=== PATIENT | female | born 1955 | race African-American/Black ===

== ENCOUNTER 2016-10-26 17:18 | Emergency (ER) | payer MEDICARE, MEDICAID ==
[~2016-10-26] VITALS: Ht 167.6 cm; Wt 59.0 kg
[~2016-10-26 17:18] MED LIST: ALBU6.7H INH; LISI-360 PO; OMEP20TA PO
[2016-10-26 17:20] VITALS: BP 154/84; PULSE 88; RESP 20; TEMP 99.4; O2SAT 98
--- NOTE | 2016-10-26 17:57 | PD ---
Physical Exam Time Seen by Provider: 17:53 Narrative 61 year old female presents to ED for evaluation of bilateral feet edema beginning 3 days ago. This has never happened "like this" in the past. Left is worse than right. Denies any pain. No recent travel. No history of blood clot. No CP or tightness. No SOB. Has been having hot flashes at night; otherwise she feels "great." Pt states she has no significant medical history. Data Data Last Documented VS Vital Signs Date Time Temp Pulse Resp B/P Pulse Ox O2 Delivery O2 Flow Rate FiO2 10/26/16 17:20 99.4 88 20 154/84 98 Room Air [facility] Medical Record Reviewed: Yes Supervised Visit with LATOYA: No Narrative Course 61 year old female presents to ED for evaluation of Bilateral foot edema. No other symptoms. Appears without distress. VSS Condition: Stable Sol Marinelli Oct 26, 2016 17:57
[2016-10-26] MEDS ORDERED: SODIUM CHLORIDE 0.9% FLUSH 10 ML FLUSH IVF PRN (19:15)
[2016-10-26 19:32] VITALS: O2SAT 100
[2016-10-26 19:55] VITALS: BP 142/77
[2016-10-26 19:56] LABS: BACTERIA, URINE RARE /hpf; BLOOD, URINE NEG (NEG); COMMENT (UR) CULT NOT INDICATED; CULTURE IF INDICATED CULT NOT INDICATED; GLUCOSE,URINE NEG (NEG); KETONE, URINE TRACE mg/dL (NEG); MUCUS URINE FEW /lpf (OCC); NITRITE,URINE NEG (NEG); PH, URINE 6.5 (5.0-8.5); SQUAMOUS EPITHELIAL CELL URINE 1 /hpf (0-5); URINE COLOR YELLOW (YELLW/STRAW)
[2016-10-26 20:00] LABS: AUTOMATED NEUTROPHIL # 2.9 TH/MM3 (1.8-7.7); BASOPHIL # 0.1 TH/MM3 (0-0.2); BASOPHIL % 1.1 % (0.0-2.0); EOSINOPHIL # 0.1 TH/MM3 (0-0.4); EOSINOPHIL % 1.3 % (0.0-4.0); HEMATOCRIT 37.2 % (35.0-46.0); LYMPH % 26.9 % (9.0-44.0); LYMPHOCYTE # 1.4 TH/MM3 (1.0-4.8); MEAN CELL VOLUME 92.1 FL (80.0-100.0); MEAN CORPUSCULAR HEMOGLOBIN 31.8 PG (27.0-34.0); MEAN CORPUSCULAR HGB CONC 34.5 % (32.0-36.0); NEUT % 54.7 % (16.0-70.0); PLATELET COUNT 85 TH/MM3 (150-450); RED BLOOD COUNT 4.04 MIL/MM3 (4.00-5.30); RED CELL DISTRIBUTION WIDTH 12.9 % (11.6-17.2); WHITE BLOOD COUNT 5.2 TH/MM3 (4.0-11.0)
[2016-10-26 20:04] LABS: HEMO FLAGS AUTO DIFF
[2016-10-26 20:27] LABS: ALKALINE PHOSPHATASE 250 U/L (45-117); ALT (GPT) 37 U/L (10-53); ANION GAP 6 MEQ/L (5-15); AST (GOT) 65 U/L (15-37); BICARBONATE 29.9 MEQ/L (21.0-32.0); BLOOD UREA NITROGEN 6 MG/DL (7-18); CHLORIDE 101 MEQ/L (98-107); GLOMERULAR FILTRATION RATE 126 ML/MIN (>89); POTASSIUM 4.1 MEQ/L (3.5-5.1); SODIUM (NA) 137 MEQ/L (136-145); TOTAL BILIRUBIN ADULT 1.1 MG/DL (0.2-1.0)
[2016-10-26 20:30] LABS: PLATELET ESTIMATE SMEAR LOW (NORMAL); PLATELET MORPHOLOGY ENLARGED (NORMAL); SCAN/DIFF AUTO DIFF CONFIRMED
--- NOTE | 2016-10-26 21:32 | PD ---
HPI Chief Complaint: Edema Time Seen by Provider: 18:53 Travel History International Travel<30 days: No Contact w/Intl Traveler<30days: No Traveled to known affect area: No History of Present Illness HPI Patient is 61 years old. She arrives due to bilateral lower extremity edema. She states it has been present for 3-4 days. The daughter is reported has been present for 2 months. Similar episodes have occurred. She's had no shortness of breath fever or chest pain. She reports decreased appetite. Urination has been normal at home. She has no history of DVT. PFSH Past Medical History Heart Rhythm Problems: No Cancer: No Cardiovascular Problems: No Chest Pain: No Cerebrovascular Accident: No Diminished Hearing: No Endocrine: No GERD: Yes Hypertension: Yes Musculoskeletal: Yes (CHRONIC BACK PAIN) Neurologic: No Psychiatric: No Reproductive: No Migraines: No Pancreatitis: Yes Seizures: No Sickle Cell Disease: No Sleep Apnea: No Menopausal: Yes Past Surgical History Cholecystectomy: Yes Endocrine Surgery: Yes (PANCREATIC SURGERY) Other Surgery: Yes (PANCREAS) Social History Alcohol Use: Yes Tobacco Use: Yes Substance Use: No Allergies-Medications (Allergen,Severity, Reaction): Coded Allergies: No Known Allergies (Verified , 10/26/16) Reported Meds & Prescriptions Reported Meds & Active Scripts Active No Active Prescriptions or Reported Medications Review of Systems Except as stated in HPI: all other systems reviewed are Neg General / Constitutional: No: Fever Respiratory: No: Shortness of Breath Musculoskeletal: Positive: Edema Physical Exam Narrative GENERAL: 61-year-old female pleasant SKIN: Focused skin assessment warm/dry. HEAD: Atraumatic. Normocephalic. EYES: Pupils equal and round. No scleral icterus. No injection or drainage. ENT: No nasal bleeding or discharge. Mucous membranes pink and moist. NECK: Trachea midline. No JVD. CARDIOVASCULAR: Regular rate and rhythm. No murmur appreciated. RESPIRATORY: No accessory muscle use. Clear to auscultation. Breath sounds equal bilaterally. GASTROINTESTINAL: Abdomen soft, non-tender, nondistended. Hepatic and splenic margins not palpable. MUSCULOSKELETAL: No obvious deformities. No clubbing. No cyanosis. Minimal bilateral nonpitting edema involving the dorsum of the feet and bilateral ankles. NEUROLOGICAL: Awake and alert. No obvious cranial nerve deficits. Motor grossly within normal limits. Normal speech. PSYCHIATRIC: Appropriate mood and affect; insight and judgment normal. Data Data Last Documented VS Vital Signs Date Time Temp Pulse Resp B/P Pulse Ox O2 Delivery O2 Flow Rate FiO2 10/26/16 21:52 90 16 152/74 100 10/26/16 19:32 Room Air 10/26/16 17:20 99.4 Vital signs reviewed Orders Complete Blood Count With Diff (10/26/16 19:14) Comprehensive Metabolic Panel (10/26/16 19:14) Urinalysis - C+S If Indicated (10/26/16 19:14) Iv Access Insert/Monitor (10/26/16 19:14) Ecg Monitoring (10/26/16 19:14) Oximetry (10/26/16 19:14) Oxygen Administration (10/26/16 19:14) Sodium Chloride 0.9% Flush (Ns Flush) (10/26/16 19:15) Us Leg Venous Doppler Bilat (10/26/16 ) Labs Laboratory Tests Test 10/26/16 10/26/16 19:00 19:25 Urine Color YELLOW Urine Turbidity HAZY Urine pH 6.5 Urine Specific [place] 1.012 Urine Protein NEG mg/dL Urine Glucose (UA) NEG mg/dL Urine Ketones TRACE mg/dL Urine Occult Blood NEG Urine Nitrite NEG Urine Bilirubin NEG Urine Urobilinogen 4.0 MG/DL Urine Leukocyte Esterase TRACE Urine RBC LESS THAN 1 /hpf Urine WBC 5 /hpf Urine Squamous Epithelial 1 /hpf Cells Urine Bacteria RARE /hpf Urine Mucus FEW /lpf Microscopic Urinalysis Comment CULT NOT INDICATED White Blood Count 5.2 TH/MM3 Red Blood Count 4.04 MIL/MM3 Hemoglobin 12.8 GM/DL Hematocrit 37.2 % Mean Corpuscular Volume 92.1 FL Mean Corpuscular Hemoglobin 31.8 PG Mean Corpuscular Hemoglobin 34.5 % Concent Red Cell Distribution Width 12.9 % Platelet Count 85 TH/MM3 Mean Platelet Volume 11.5 FL Neutrophils (%) (Auto) 54.7 % Lymphocytes (%) (Auto) 26.9 % Monocytes (%) (Auto) 16.0 % Eosinophils (%) (Auto) 1.3 % Basophils (%) (Auto) 1.1 % Neutrophils # (Auto) 2.9 TH/MM3 Lymphocytes # (Auto) 1.4 TH/MM3 Monocytes # (Auto) 0.8 TH/MM3 Eosinophils # (Auto) 0.1 TH/MM3 Basophils # (Auto) 0.1 TH/MM3 CBC Comment AUTO DIFF Differential Comment AUTO DIFF CONFIRMED Platelet Estimate LOW Platelet Morphology Comment ENLARGED Red Cell Morphology Comment NORMAL Sodium Level 137 MEQ/L Potassium Level 4.1 MEQ/L Chloride Level 101 MEQ/L Carbon Dioxide Level 29.9 MEQ/L Anion Gap 6 MEQ/L Blood Urea Nitrogen 6 MG/DL Creatinine 0.59 MG/DL Estimat Glomerular Filtration 126 ML/MIN Rate Random Glucose 94 MG/DL Calcium Level 9.1 MG/DL Total Bilirubin 1.1 MG/DL Aspartate Amino Transf 65 U/L (AST/SGOT) Alanine Aminotransferase 37 U/L (ALT/SGPT) Alkaline Phosphatase 250 U/L Total Protein 7.2 GM/DL Albumin 3.0 GM/DL [facility] Medical Decision Making Medical Screen Exam Complete: Yes Emergency Medical Condition: Yes Medical Record Reviewed: Yes Differential Diagnosis CHF, hypoalbuminemia, renal failure Narrative Course CBC & BMP Diagram 10/26/16 19:25 Albumin 3.0 Alkaline phosphatase 250 No UTI The patient is resting comfortably and feels better, is alert and in no distress. The patients results and examination findings were discussed. The repeat examination is unremarkable and benign. The history, exam, diagnostic testing, and current condition do not suggest any significant pathology to warrant further testing, continued ED treatment, admission, or surgical evaluation at this point. The vital signs have been stable. The patient does not have uncontrollable pain, intractable vomiting, or other significant symptoms. The patient's condition is stable and appropriate for discharge. The patient will pursue further outpatient evaluation with a primary care physician or other designated or consulting physician as indicated in the discharge instructions. The patient expressed understanding and was agreeable with this plan. Diagnosis Primary Impression: Edema Qualified Code: R60.9 - Edema, unspecified type Additional Impressions: Hypoalbuminemia Elevated alkaline phosphatase level Referrals: DR YBARRA 2 days Additional Instructions: You have a choice when it comes to health care, and we are glad that you chose [facility]. Hopefully, we have met your expectations on today's visit. You are welcome to return to [facility] at any time, as we are committed to meeting the health care needs of our community. Med/Other Pt SpecificInfo: Med Stopped Scripts No Active Prescriptions or Reported Meds Disposition: DISCHARGE HOME Condition: Stable Ousmane Blandon MD Oct 26, 2016 21:32
--- NOTE | 2016-10-26 21:36 | RADRPT ---
EXAM DATE/TIME: 10/26/2016 20:22 [facility] COMPARISON: No previous studies available for comparison. INDICATIONS : Bilateral leg swelling. MEDICAL HISTORY : Hypertension. Pancreatitis. Gastroesophageal reflux disease. Head trauma. Chronic back pain. SURGICAL HISTORY : Cholecystectomy. ENCOUNTER: Initial ACUITY: 1 week PAIN SCORE: 0/10 LOCATION: Bilateral legs. TECHNIQUE: Venous ultrasound of the left and right leg was performed from the inguinal ligament to the proximal calf. Real-time, color Doppler and spectral tracing, compression and augmentation techniques were us ed. FINDINGS: RIGHT LEG: There is normal compressibility of the deep venous system from the inguinal region to the proximal ca lf. No echogenic clot is seen in the lumen of the common femoral, femoral, popliteal, and posterior tibial veins. There is a normal response of the venous system to proximal and distal augmentation an d respiration. LEFT LEG: There is normal compressibility of the deep venous system from the inguinal region to the proximal ca lf. No echogenic clot is seen in the lumen of the common femoral, femoral, popliteal, and posterior tibial veins. There is a normal response of the venous system to proximal and distal augmentation an d respiration. CONCLUSION: Negative study. No DVT of either lower extremity. Can Olea MD on October 26, 2016 at 21:34 Board Certified Radiologist. This report was verified electronically.
[2016-10-26 21:52] VITALS: BP 152/74
== END 2016-10-26 21:55 | disposition home or self-care (01) ==
LOC: NEPD 17:18
DX: R60.0 Localized edema (principal); E88.09 Other disorders of plasma-protein metabolism, not elsewhere classified; R74.8 Abnormal levels of other serum enzymes; I10 Essential (primary) hypertension; Z72.0 Tobacco use
CPT/HCPCS: 80053; 81001; 85025; 93970

== ENCOUNTER 2017-07-01 23:29 | Emergency (ER) | payer MEDICARE, MEDICAID ==
[~2017-07-01] VITALS: Ht 167.6 cm; Wt 59.1 kg
[2017-07-01 23:39] VITALS: BP 152/74; PULSE 86; RESP 16; TEMP 98; O2SAT 96
--- NOTE | 2017-07-02 01:09 | PD ---
HPI Chief Complaint: Pain: Acute or Chronic Time Seen by Provider: 00:35 Travel History International Travel<30 days: No Contact w/Intl Traveler<30days: No Traveled to known affect area: No History of Present Illness HPI 61-year-old black female presents emergency Department with complaints of bilateral lower extremity pain. She states that she has had pain in her lower extremities for many months. The left is greater than the right. She also states that she has had swelling in both lower legs left hand greater than the right. The patient states that she does not know why she is having this much discomfort. She admits to alcohol. She denies history of gout. Symptoms are moderate to severe. Worsened by ambulation. No alleviating factors. PFSH Past Medical History Heart Rhythm Problems: No Cancer: No Cardiovascular Problems: No Chest Pain: No Cerebrovascular Accident: No Diminished Hearing: No Endocrine: No GERD: Yes Hypertension: Yes Musculoskeletal: Yes (CHRONIC BACK PAIN) Neurologic: No Psychiatric: No Reproductive: No Migraines: No Pancreatitis: Yes Seizures: No Sickle Cell Disease: No Sleep Apnea: No Tetanus Vaccination: Unknown Influenza Vaccination: No ?: Unknown LMP: unknown Menopausal: Yes : 2 Para: 2 Past Surgical History Cholecystectomy: Yes Endocrine Surgery: Yes (PANCREATIC SURGERY) Other Surgery: Yes (PANCREAS) Social History Alcohol Use: Yes (4 pack per day) Tobacco Use: Yes (one pack per day) Substance Use: No Allergies-Medications (Allergen,Severity, Reaction): Coded Allergies: No Known Allergies (Verified Adverse Reaction, Unknown, 07/02/17) Reported Meds & Prescriptions Reported Meds & Active Scripts Active Deltasone (Prednisone) 20 Mg Tab 20 Mg PO BID Diclofenac Sodium DR (Diclofenac Sodium) 50 Mg Tabdr 50 Mg PO TID Review of Systems Except as stated in HPI: all other systems reviewed are Neg Physical Exam Narrative GENERAL: Well-developed, well-nourished in no apparent distress. Nontoxic appearing. Smells of EtOH. HEAD: Normocephalic, atraumatic. EYES: Pupils equal round and reactive. Extraocular motions intact. No scleral icterus. No injection or drainage. ENT: Nose clear. Throat without erythema, tonsillar hypertrophy or exudate. Uvula midline. Airway patent. NECK: Trachea midline. Supple, nontender, moves head freely. No central bony tenderness or spasm. CARDIOVASCULAR: Regular rate and rhythm without murmurs, gallops, or rubs. RESPIRATORY: Clear to auscultation. Breath sounds equal bilaterally. No wheezes , rales, or rhonchi. GASTROINTESTINAL: Abdomen soft, non-tender, nondistended. No hepato-splenomegaly , or palpable masses. No guarding. EXTREMITIES: No clubbing, cyanosis, patient has +1 pedal edema in the right leg and 2+ pedal edema in the left leg. She complains of pain in both feet and ankles. She has intact gross sensation. Patient complains of pain in the medial left thigh. Pain in the left hip. BACK: Nontender without deformity. No flank tenderness. NEUROLOGICAL: Awake, alert and oriented x 3 .Cranial nerves grossly intact. Motor and sensory grossly within normal limits. Normal speech. Data Data Last Documented VS Vital Signs Date Time Temp Pulse Resp B/P (MAP) Pulse Ox O2 Delivery O2 Flow Rate FiO2 07/02/17 03:04 07/02/17 00:24 20 07/01/17 23:39 98.0 86 96 Room Air Orders Orders Us Leg Venous Doppler (07/02/17 00:40) Complete Blood Count With Diff (07/02/17 00:40) Comprehensive Metabolic Panel (07/02/17 00:40) Iv Access Insert/Monitor (07/02/17 00:40) Drug Screen, Random Urine (07/02/17 00:40) Alcohol (Ethanol) (07/02/17 00:40) Uric Acid (07/02/17 00:40) Urinalysis - C+S If Indicated (07/02/17 00:40) Ketorolac Inj (Toradol Inj) (07/02/17 02:45) Dexamethasone Inj (Decadron Inj) (07/02/17 02:45) Ed Discharge Order (07/02/17 02:46) Labs Laboratory Tests Test 07/02/17 00:45 07/02/17 00:55 Urine Color COLORLESS Urine Turbidity CLEAR Urine pH 5.0 Urine Specific [place] 1.003 Urine Protein NEG mg/dL Urine Glucose (UA) NEG mg/dL Urine Ketones NEG mg/dL Urine Occult Blood NEG Urine Nitrite NEG Urine Bilirubin NEG Urine Urobilinogen LESS THAN 2.0 MG/DL Urine Leukocyte Esterase TRACE Urine RBC 1 /hpf Urine WBC 1 /hpf Urine Bacteria RARE /hpf Microscopic Urinalysis Comment CULT NOT INDICATED Urine Opiates Screen NEG Urine Barbiturates Screen NEG Urine Amphetamines Screen NEG Urine Benzodiazepines Screen NEG Urine Cocaine Screen NEG Urine Cannabinoids Screen NEG White Blood Count 7.6 TH/MM3 Red Blood Count 4.38 MIL/MM3 Hemoglobin 14.1 GM/DL Hematocrit 39.7 % Mean Corpuscular Volume 90.6 FL Mean Corpuscular Hemoglobin 32.2 PG Mean Corpuscular Hemoglobin Concent 35.5 % Red Cell Distribution Width 13.0 % Platelet Count 118 TH/MM3 Mean Platelet Volume 11.0 FL Neutrophils (%) (Auto) 37.0 % Lymphocytes (%) (Auto) 50.2 % Monocytes (%) (Auto) 9.9 % Eosinophils (%) (Auto) 2.1 % Basophils (%) (Auto) 0.8 % Neutrophils # (Auto) 2.8 TH/MM3 Lymphocytes # (Auto) 3.8 TH/MM3 Monocytes # (Auto) 0.7 TH/MM3 Eosinophils # (Auto) 0.2 TH/MM3 Basophils # (Auto) 0.1 TH/MM3 CBC Comment DIFF FINAL Differential Comment Blood Urea Nitrogen 9 MG/DL Creatinine 0.52 MG/DL Random Glucose 79 MG/DL Total Protein 8.2 GM/DL Albumin 3.5 GM/DL Calcium Level 8.9 MG/DL Uric Acid 4.3 MG/DL Alkaline Phosphatase 232 U/L Aspartate Amino Transf (AST/SGOT) 71 U/L Alanine Aminotransferase (ALT/SGPT) 42 U/L Total Bilirubin 0.3 MG/DL Sodium Level 137 MEQ/L Potassium Level 4.1 MEQ/L Chloride Level 103 MEQ/L Carbon Dioxide Level 23.5 MEQ/L Anion Gap 11 MEQ/L Estimat Glomerular Filtration Rate 146 ML/MIN Ethyl Alcohol Level 315 MG/DL [facility] Medical Decision Making Medical Screen Exam Complete: Yes Emergency Medical Condition: Yes Medical Record Reviewed: Yes Interpretation(s) Laboratory Tests Test 07/02/17 00:45 07/02/17 00:55 Urine Color COLORLESS Urine Turbidity CLEAR Urine pH 5.0 Urine Specific [place] 1.003 Urine Protein NEG mg/dL Urine Glucose (UA) NEG mg/dL Urine Ketones NEG mg/dL Urine Occult Blood NEG Urine Nitrite NEG Urine Bilirubin NEG Urine Urobilinogen LESS THAN 2.0 MG/DL Urine Leukocyte Esterase TRACE Urine RBC 1 /hpf Urine WBC 1 /hpf Urine Bacteria RARE /hpf Microscopic Urinalysis Comment CULT NOT INDICATED Urine Opiates Screen NEG Urine Barbiturates Screen NEG Urine Amphetamines Screen NEG Urine Benzodiazepines Screen NEG Urine Cocaine Screen NEG Urine Cannabinoids Screen NEG White Blood Count 7.6 TH/MM3 Red Blood Count 4.38 MIL/MM3 Hemoglobin 14.1 GM/DL Hematocrit 39.7 % Mean Corpuscular Volume 90.6 FL Mean Corpuscular Hemoglobin 32.2 PG Mean Corpuscular Hemoglobin Concent 35.5 % Red Cell Distribution Width 13.0 % Platelet Count 118 TH/MM3 Mean Platelet Volume 11.0 FL Neutrophils (%) (Auto) 37.0 % Lymphocytes (%) (Auto) 50.2 % Monocytes (%) (Auto) 9.9 % Eosinophils (%) (Auto) 2.1 % Basophils (%) (Auto) 0.8 % Neutrophils # (Auto) 2.8 TH/MM3 Lymphocytes # (Auto) 3.8 TH/MM3 Monocytes # (Auto) 0.7 TH/MM3 Eosinophils # (Auto) 0.2 TH/MM3 Basophils # (Auto) 0.1 TH/MM3 CBC Comment DIFF FINAL Differential Comment Blood Urea Nitrogen 9 MG/DL Creatinine 0.52 MG/DL Random Glucose 79 MG/DL Total Protein 8.2 GM/DL Albumin 3.5 GM/DL Calcium Level 8.9 MG/DL Uric Acid 4.3 MG/DL Alkaline Phosphatase 232 U/L Aspartate Amino Transf (AST/SGOT) 71 U/L Alanine Aminotransferase (ALT/SGPT) 42 U/L Total Bilirubin 0.3 MG/DL Sodium Level 137 MEQ/L Potassium Level 4.1 MEQ/L Chloride Level 103 MEQ/L Carbon Dioxide Level 23.5 MEQ/L Anion Gap 11 MEQ/L Estimat Glomerular Filtration Rate 146 ML/MIN Ethyl Alcohol Level 315 MG/DL Last 24 hours Impressions Lower Extremity Ultrasound 07/02/17 0040 Signed Impressions: Service Date/Time: Sunday, July 02, 2017 01:54 - CONCLUSION: Normal examination. Can Paige MD Differential Diagnosis Differential diagnosis: DVT, arthritis, gout, electrolyte abnormality, chronic alcohol abuse Narrative Course IV access is obtained. Laboratory testing for analysis. Ultrasound of left lower leg for DVT. Diagnosis Primary Impression: Chronic alcohol abuse Additional Impressions: Inflammatory arthritis Gout Patient Instructions: General Instructions Additional Instructions: Rest. Stop alcohol. Medications as directed. Follow-up with a primary care doctor in the next 3-5 days. Return to the ER for emergencies. Med/Other Pt SpecificInfo: Prescription(s) given Scripts Prednisone (Deltasone) 20 Mg Tab 20 MG PO BID, #10 TAB 0 Refills Prov: Carina Celis DO 07/02/[address] (Diclofenac Sodium DR) 50 Mg Tabdr 50 MG PO TID, #30 TAB 0 Refills Prov: Carina Celis DO 07/02/17 Disposition: 01 DISCHARGE HOME Condition: Stable Reji Ford Jul 02, 2017 01:09
[2017-07-02 01:19] LABS: AUTOMATED NEUTROPHIL # 2.8 TH/MM3 (1.8-7.7); BASOPHIL # 0.1 TH/MM3 (0-0.2); BASOPHIL % 0.8 % (0.0-2.0); EOSINOPHIL # 0.2 TH/MM3 (0-0.4); EOSINOPHIL % 2.1 % (0.0-4.0); HEMATOCRIT 39.7 % (35.0-46.0); HEMOGLOBIN 14.1 GM/DL (11.6-15.3); LYMPH % 50.2 % (9.0-44.0); LYMPHOCYTE # 3.8 TH/MM3 (1.0-4.8); MEAN CELL VOLUME 90.6 FL (80.0-100.0); MEAN CORPUSCULAR HEMOGLOBIN 32.2 PG (27.0-34.0); MEAN CORPUSCULAR HGB CONC 35.5 % (32.0-36.0); MONO % 9.9 % (0.0-8.0); MONOCYTE # 0.7 TH/MM3 (0-0.9); PLATELET COUNT 118 TH/MM3 (150-450); RED BLOOD COUNT 4.38 MIL/MM3 (4.00-5.30); WHITE BLOOD COUNT 7.6 TH/MM3 (4.0-11.0)
[2017-07-02 01:25] LABS: BACTERIA, URINE RARE /hpf; BILIRUBIN, URINE NEG (NEG); BLOOD, URINE NEG (NEG); GLUCOSE,URINE NEG (NEG); KETONE, URINE NEG (NEG); NITRITE,URINE NEG (NEG); URINE COLOR COLORLESS (YELLW/STRAW); URINE LEUKOCYTE ESTERASE TRACE (NEG)
[2017-07-02 01:37] LABS: ALBUMIN 3.5 GM/DL (3.4-5.0); ALT (GPT) 42 U/L (10-53); AST (GOT) 71 U/L (15-37); BICARBONATE 23.5 MEQ/L (21.0-32.0); BLOOD UREA NITROGEN 9 MG/DL (7-18); CALCIUM 8.9 MG/DL (8.5-10.1); CHLORIDE 103 MEQ/L (98-107); CREATININE 0.52 MG/DL (0.50-1.00); GLOMERULAR FILTRATION RATE 146 ML/MIN (>89); GLUCOSE,RANDOM 79 MG/DL (74-106); SODIUM (NA) 137 MEQ/L (136-145)
[2017-07-02 01:39] LABS: ALKALINE PHOSPHATASE 232 U/L (45-117); TOTAL BILIRUBIN ADULT 0.3 MG/DL (0.2-1.0); TOTAL PROTEIN 8.2 GM/DL (6.4-8.2)
--- NOTE | 2017-07-02 02:31 | RADRPT ---
EXAM DATE/TIME: 07/02/2017 01:54 [facility] COMPARISON: No previous studies available for comparison. EXTERNAL COMPARISON : [facility], US VENOUS DOPPLER LEFT LEG, June 21, 2017. INDICATIONS : Left leg swelling and pain. MEDICAL HISTORY : Pancreatitis. Gastroesophageal reflux disease. Hypertension. SURGICAL HISTORY : Cholecystectomy. Pancreatic surgery. ENCOUNTER: Subsequent ACUITY: 2 weeks PAIN SCORE: 3/10 LOCATION: Left leg. TECHNIQUE: Venous ultrasound of the leg was performed from the inguinal ligament to the proximal calf. Real-merle e, color Doppler and spectral tracing, compression and augmentation techniques were used. FINDINGS: There is normal compressibility of the deep venous system from the inguinal region to the proximal ca lf. No echogenic clot is seen in the lumen of the common femoral, femoral, popliteal, and posterior tibial veins. There is a normal response of the venous system to proximal and distal augmentation an d respiration. CONCLUSION: Normal examination. Can Paige MD on July 02, 2017 at 2:28 Board Certified Radiologist. This report was verified electronically.
[2017-07-02] MEDS ORDERED: KETOROLAC TROMETHAMINE 30 MG/ML (IVP) VIAL IV PUSH ONE (02:45)
[2017-07-02] MEDS ORDERED: DEXAMETHASONE SOD PHOS 20 MG/5 ML VIAL IV PUSH ONE (02:45)
[2017-07-02] MEDS ORDERED: DICL50TA3 PO (02:46)
[2017-07-02] MEDS ORDERED: PRED-503 PO (02:46)
== END 2017-07-02 03:36 | disposition home or self-care (01) ==
LOC: NEPD 23:29
DX: F10.10 Alcohol abuse, uncomplicated (principal); M19.90 Unspecified osteoarthritis, unspecified site; M10.9 Gout, unspecified; K21.9 Gastro-esophageal reflux disease without esophagitis; I10 Essential (primary) hypertension; F17.200 Nicotine dependence, unspecified, uncomplicated; Z87.19 Personal history of other diseases of the digestive system; Z79.899 Other long term (current) drug therapy
CPT/HCPCS: 80053; 80307; 81001; 84550; 85025; 93971; 96374; 96375; 99285; J1100; J1885

== ENCOUNTER 2017-08-22 19:18 | Inpatient (IN) | payer MEDICARE, MEDICAID ==
[~2017-08-22] VITALS: Ht 167.6 cm; Wt 72.0 kg
[~2017-08-22 19:18] MED LIST changes: -ALBU6.7H INH; +DICL50TA3 PO; -LISI-360 PO; -OMEP20TA PO; +PRED-503 PO
[2017-08-22 19:34] VITALS: BP 148/73; PULSE 88; RESP 20; TEMP 97.9; O2SAT 100
[2017-08-22 19:38] VITALS: RESP 16; O2SAT 100
--- NOTE | 2017-08-22 19:39 | PD ---
HPI Chief Complaint: Fall Time Seen by Provider: 19:32 Travel History International Travel<30 days: No Contact w/Intl Traveler<30days: No History of Present Illness HPI The patient is a 62 year old female who presents to the [facility] emergency department with a history of reportedly losing her balance prior to arrival. The patient reports that she has been drinking alcohol throughout the day today. She reports that she has drank "a lot". The patient reports that she was in the process of getting dinner when she lost her balance and struck the right side of her head on the refrigerator door. The patient denies having any loss of consciousness. She denies having any neck pain, paresthesias, or weakness to her extremities. The patient is brought in by ambulance services without any immobilization. The patient is complaining of right leg pain. The patient unfortunately is a poor historian and has difficulty localizing exactly where the pain is out. Ambulance services reported that the patient has difficulty walking in general related to a history of gout. The patient has deformity and swelling to the right wrist. The patient has a noted laceration with bandage in place along the lateral aspect of the right eyebrow. The patient on review of systems denies having any chest pain, chest pressure, shortness of breath, abdominal pain, vomiting, or diarrhea. Otherwise on review of systems the patient denies having any recent known fevers, cough or congestion, urinary symptoms, or neurologic symptoms. PENDING SALE TO [facility] Past Medical History Narrative Medical The patient's past medical history is significant for hypertension, gout, history of pancreatitis, history of hepatitis, history of alcohol abuse. Heart Rhythm Problems: No Cancer: No Cardiovascular Problems: No Chest Pain: No Cerebrovascular Accident: No Diminished Hearing: No Endocrine: No GERD: Yes Hypertension: Yes Musculoskeletal: Yes (CHRONIC BACK PAIN) Neurologic: No Psychiatric: No Reproductive: No Migraines: No Pancreatitis: Yes Seizures: No Sickle Cell Disease: No Sleep Apnea: No Menopausal: Yes : 2 Para: 2 Past Surgical History Narrative Surgical The patient's past surgical history is significant for a cholecystectomy, pancreatic surgery Cholecystectomy: Yes Endocrine Surgery: Yes (PANCREATIC SURGERY) Other Surgery: Yes (PANCREAS) Social History Alcohol Use: Yes (4 pack per day) Tobacco Use: Yes (one pack per day) Substance Use: No Allergies-Medications (Allergen,Severity, Reaction): Coded Allergies: No Known Allergies (Verified Allergy, Unknown, 08/22/17) Reported Meds & Prescriptions Reported Meds & Active Scripts Active Deltasone (Prednisone) 20 Mg Tab 20 Mg PO BID Diclofenac Sodium DR (Diclofenac Sodium) 50 Mg Tabdr 50 Mg PO TID Review of Systems Except as stated in HPI: all other systems reviewed are Neg General / Constitutional: No: Fever Eyes: No: Visual changes HENT: No: Headaches Cardiovascular: No: Chest Pain or Discomfort Respiratory: No: Shortness of Breath Gastrointestinal: No: Abdominal Pain Genitourinary: No: Dysuria Musculoskeletal: Positive: Myalgias, Arthralgias, Limited ROM, Pain Skin: No Rash Neurologic: Positive: Slurred Speech, No: Weakness, Focal Abnormalities, Change in Mentation, Sensory Disturbance Psychiatric: Positive: Substance Abuse, No: Depression Endocrine: No: Polydipsia Hematologic/Lymphatic: No: Easy Bruising Physical Exam Narrative General: The patient is a well-developed well-nourished female in no acute distress. Head and Neck exam: Head is normocephalic, with evidence of trauma to the right side of the orthodoxy, bandage in place, this was gently removed and the patient is noted to have a linear laceration that is approximately 2-1/2 cm without any active bleeding noted. The patient has no other facial bone tenderness on palpation. No step- off or crepitus. No erythema or ecchymosis. No increase facial bone motility on palpation. Eyes: EOMI, pupils are equal round and reactive to light. Nose: Midline septum with pink mucous membranes Mouth: Dentition unremarkable. Moist mucus membranes. Posterior oropharynx is not erythematous. No tonsillar hypertrophy. Uvula midline. Airway patent. Neck: No palpable lymphadenopathy. No nuchal rigidity. No thyromegaly. Cardiovascular: Regular rate and rhythm without murmurs, gallops, or rubs. Lungs: Clear to auscultation bilaterally. No wheezes, rhonchi, or rales. Abdomen: Soft, without tenderness to palpation in all 4 quadrants of the abdomen. No guarding, rebound, or rigidity. Normal bowel sounds are audible. No tenderness on palpation of McBurney's point. Extremities: No clubbing or cyanosis. 2+ pulses in all 4 extremities. On examination of the patient's extremities the patient is noted to have peripheral edema that is approximately 1+. The patient has no tenderness on palpation of the left side with full range of motion including flexion extension at her ankle, knee, and hip. On examination of the right side the patient has decreased range of motion and has difficulty localizing the pain, however on palpation the patient has no ankle pain with range of motion, no knee pain or swelling with range of motion. The patient however does seem to have pain with any attempts at flexion or rotation of her right hip. The patient is also noted on examination of the right wrist to have swelling and deformity noted. The patient has pain with flexion and extension or any attempts at range of motion of the wrist. The patient has tenderness on palpation over the snuffbox. The patient has less than 3 second capillary refill of her digits. The patient has intact sensation of all of her digits. Back: No spinous process tenderness to palpation. No costovertebral angle tenderness to palpation. Neurologic Exam: Cranial nerves 2-12 were intact on exam. Strength is 5/5 in all 4 extremities. No sensory deficits noted. The patient has slurred speech with an odor of alcohol about her. Skin Exam: No rash noted. Intact skin that is warm and dry. Data Data Last Documented VS Vital Signs Date Time Temp Pulse Resp B/P (MAP) Pulse Ox O2 Delivery O2 Flow Rate FiO2 08/22/17:38 87 16 100 Room Air 08/22/17 19:34 97.9 148/73 (98) Orders Orders Electrocardiogram (08/22/17:32) Complete Blood Count With Diff (08/22/17:) Comprehensive Metabolic Panel (08/22/17:32) Prothrombin Time / Inr (Pt) (08/22/17:) Act Partial Throm Time (Ptt) (08/22/17:) Lipase (08/22/17:) Urinalysis - C+S If Indicated (08/22/17:) Magnesium (Mg) (08/22/17:) Chest, Single Ap (08/22/17:32) Ct Brain W/O Iv Contrast(Rout) (08/22/17:32) Iv Access Insert/Monitor (08/22/17:32) Ecg Monitoring (08/22/17:32) Oximetry (08/22/17:) Apply Cervical Collar (2/11/18 19:32) Drug Screen, Random Urine (08/22/17 19:32) Alcohol (Ethanol) (08/22/17 19:32) Hip, Uni(Ap&Lat) W Ap Pelvis (08/22/17 19:32) Wrist, Complete (Xft0bpt) (08/22/17 19:32) Ice/Cold Pack (08/22/17 19:32) Sodium Chlor 0.9% 1000 Ml Inj (Ns 1000 M (08/22/17 19:45) Thiamine Inj (Thiamine Inj) (08/22/17 19:45) Cefazolin 2 Gm Premix (Ancef 2 Gm Premix (08/22/17 19:45) Dioq-Ltz-Zzwdof (Booster) Inj (Boostrix (08/22/17 19:45) Ct Hip W/O Contrast (08/22/17 ) Morphine Inj (Morphine Inj) (08/22/17 21:15) Ondansetron Inj (Zofran Inj) (08/22/17 21:15) Splint Or Brace Apply/Monitor (08/22/17 21:10) Ct Cerv Spine W/O Contrast (08/22/17 ) Urinary Catheter Insert/Apply (08/22/17 21:47) Admit Order (Ed Use Only) (08/22/17 22:02) Labs Laboratory Tests Test 08/22/17 20:30 08/22/17 20:35 White Blood Count 5.6 TH/MM3 Red Blood Count 4.80 MIL/MM3 Hemoglobin 14.8 GM/DL Hematocrit 42.6 % Mean Corpuscular Volume 88.8 FL Mean Corpuscular Hemoglobin 30.8 PG Mean Corpuscular Hemoglobin Concent 34.6 % Red Cell Distribution Width 13.0 % Platelet Count 109 TH/MM3 Mean Platelet Volume 10.0 FL Neutrophils (%) (Auto) 49.3 % Lymphocytes (%) (Auto) 39.8 % Monocytes (%) (Auto) 8.1 % Eosinophils (%) (Auto) 1.9 % Basophils (%) (Auto) 0.9 % Neutrophils # (Auto) 2.8 TH/MM3 Lymphocytes # (Auto) 2.2 TH/MM3 Monocytes # (Auto) 0.5 TH/MM3 Eosinophils # (Auto) 0.1 TH/MM3 Basophils # (Auto) 0.0 TH/MM3 CBC Comment DIFF FINAL Differential Comment Prothrombin Time 10.8 SEC Prothromb Time International Ratio 1.1 RATIO Activated Partial Thromboplast Time 29.4 SEC Blood Urea Nitrogen 8 MG/DL Creatinine 0.58 MG/DL Random Glucose 87 MG/DL Total Protein 8.2 GM/DL Albumin 3.5 GM/DL Calcium Level 8.3 MG/DL Magnesium Level 1.9 MG/DL Alkaline Phosphatase 226 U/L Aspartate Amino Transf (AST/SGOT) 91 U/L Alanine Aminotransferase (ALT/SGPT) 44 U/L Total Bilirubin 0.3 MG/DL Sodium Level 129 MEQ/L Potassium Level 4.6 MEQ/L Chloride Level 95 MEQ/L Carbon Dioxide Level 24.3 MEQ/L Anion Gap 10 MEQ/L Estimat Glomerular Filtration Rate 128 ML/MIN Lipase 78 U/L Ethyl Alcohol Level 375 MG/DL Urine Color YELLOW Urine Turbidity CLEAR Urine pH 5.0 Urine Specific [place] 1.006 Urine Protein NEG mg/dL Urine Glucose (UA) NEG mg/dL Urine Ketones NEG mg/dL Urine Occult Blood NEG Urine Nitrite NEG Urine Bilirubin NEG Urine Urobilinogen LESS THAN 2.0 MG/DL Urine Leukocyte Esterase MOD Urine RBC LESS THAN 1 /hpf Urine WBC 3 /hpf Urine Squamous Epithelial Cells <1 /hpf Urine Bacteria RARE /hpf Microscopic Urinalysis Comment CULT NOT INDICATED Urine Opiates Screen NEG Urine Barbiturates Screen NEG Urine Amphetamines Screen NEG Urine Benzodiazepines Screen NEG Urine Cocaine Screen NEG Urine Cannabinoids Screen NEG MDM Medical Decision Making Medical Screen Exam Complete: Yes Emergency Medical Condition: Yes Medical Record Reviewed: Yes Interpretation(s) Last Impressions Wrist X-Ray 08/22/[id number] Signed Impressions: Service Date/Time: Tuesday, August 22, 2017 19:52 - CONCLUSION: No evidence of recent bony injury. Evans Conn MD Hip and Pelvis X-Ray [id number]/22/171931 Signed Impressions: Service Date/Time: Tuesday, August 22, 2017 19:48 - CONCLUSION: Possible intratrochanteric fracture of the right side, nondisplaced. Evans Conn MD Head CT [id number]/22/171931 Signed Impressions: Service Date/Time: Tuesday, August 22, 2017 20:02 - CONCLUSION: No acute findings in the brain Evans Conn MD Chest X-Ray [id number]/22/171931 Signed Impressions: Service Date/Time: Tuesday, August 22, 2017 19:50 - CONCLUSION: The lungs are clear. Evans Conn MD Lower Extremity CT 08/22/17 0000 Signed Impressions: Service Date/Time: Tuesday, August 22, 2017 22:42 - CONCLUSION: Nondisplaced mildly comminuted hairline fractures the intratrochanteric region. Evans Conn MD Cervical Spine CT 08/22/17 0000 Signed Impressions: Service Date/Time: Tuesday, August 22, 2017 22:37 - CONCLUSION: 1. No evidence of compression deformity or spondylolisthesis. 2. 7 mm lytic lesion in the left C6 body; of uncertain significance. Evans Conn MD Differential Diagnosis Intracranial hemorrhage, versus cervical spine fracture, versus right hip dislocation, versus right hip fracture, versus contusion, versus right wrist fracture, versus dislocation, versus contusion Narrative Course During the course of the patient's emergency department visit, the patient's history, examination, and differential diagnosis were reviewed with the patient. The patient was placed on a certified nurse practitioner with oximetry and frequent blood pressure monitoring. The patient had IV access obtained and blood work sent for analysis. The patient was initially provided Ancef 2 g IV, and update to her tetanus, thiamine 100 mg IV, normal saline at 100 mL/h, morphine for pain, Zofran for nausea. The patient's laboratory studies were reviewed and remarkable for a white count of 5.6, hemoglobin 14.8, platelets 109 with 8.1 monocytes, CMP is remarkable for sodium of 129, chloride 95, calcium 8.3, AST 91, alk phos 226, lipase 78, PT PTT unremarkable, alcohol level 375, urine drug screen is negative, urinalysis shows moderate leukocyte esterase, 3 PVCs, rare bacteria, culture not indicated per Radiology studies were reviewed and remarkable for right hip suspected intertrochanteric fracture that is nondisplaced, CT confirms a nondisplaced intertrochanteric fracture, chest x-ray that shows no acute cardiopulmonary disease, wrist x-ray shows no acute bony abnormality, however given the patient' s snuffbox tenderness the patient was placed in a thumb spica splint. CT scan of the brain shows no acute abnormality. CT scan of the C-spine shows no evidence of compression deformity or spondylolisthesis, 7 mm lytic lesion in the left C6 body of uncertain significance. The patient's results were discussed with the patient, including the plan of care. I explained that further testing and/ or monitoring is indicated based on the patient's history, examination, and/ or laboratory findings. Therefore, I recommended admission for additional evaluation. The patient expressed understanding and was agreeable with this plan. The patient was admitted to the hospital in stable condition and sent to a bed under the care of the [facility] service. Procedures Procedure Narrative LACERATION LOCATION: Right orthodoxy LENGTH: 2-1/2 cm NUMBER OF STITCHES/NYLA: 5 sutures REPAIR: The area of the laceration was prepped with Betadine and sterilely draped. The laceration was infiltrated with 1% lidocaine with epinephrine. The wound was copiously irrigated and explored without evidence of foreign body, tendon injury or neurovascular injury. The wound was closed using 5-0 Ethilon. This was a single layer repair. A sterile dressing was applied. The patient was advised to keep the dressing clean and dry. Patient tolerated the procedure well. Physician Communication Physician Communication The patient's case including history, pertinent physical examination findings, and laboratory studies were discussed with Dr. Daniels. It was agreed that the patient would be admitted to the [facility] service. Diagnosis Primary Impression: Fall Qualified Codes: W19.XXXA - Unspecified fall, initial encounter Additional Impressions: Head injury Qualified Codes: S09.90XA - Unspecified injury of head, initial encounter Intertrochanteric fracture Qualified Codes: S72.144A - Nondisplaced intertrochanteric fracture of right femur, initial encounter for closed fracture Wrist pain, acute Qualified Codes: M25.531 - Pain in right wrist Admitting Information Admitting Physician Requests: Admit Joie Smalls MD Aug 22, 2017 19:39
[2017-08-22] MEDS ORDERED: SODIUM CHLOR 0.9% 1000 ML INJ 1,000 ML IV SCH (19:45)
[2017-08-22] MEDS ORDERED: DIPHTH/TETANUS/ACEL PERTUSSIS (BOOSTER) 0.5 ML VIAL/PFS IM ONE (19:45)
[2017-08-22] MEDS ORDERED: ceFAZolin 2 GM PREMIX 50 ML IV ONE (19:45)
[2017-08-22] MEDS ORDERED: THIAMINE INJ 100 MG in SODIUM CHLORIDE 0.9% INJ 100 ML IV ONE ×2 (19:45→22:30)
[2017-08-22] MEDS ORDERED: LIDOCAINE 1%/EPINEPHrine 1:100,000 SOLN 20 ML VIAL INFIL ONE (19:45)
--- NOTE | 2017-08-22 20:14 | RADRPT ---
EXAM DATE/TIME: 08/22/2017 19:50 [facility] COMPARISON: No previous studies available for comparison. INDICATIONS : Evaluate chest for trauma, fell MEDICAL HISTORY : Pancreatitis. Gastroesophageal reflux disease. Hypertension SURGICAL HISTORY : Cholecystectomy. Pancreatic surgery. ENCOUNTER: Initial ACUITY: 1 day PAIN SCORE: 0/10 LOCATION: chest FINDINGS: A single view of the chest demonstrates the lungs to be symmetrically aerated without evidence of mas s, infiltrate or effusion. The cardiomediastinal contours are unremarkable. Osseous structures are intact. CONCLUSION: The lungs are clear. Evans Conn MD on August 22, 2017 at 20:12 Board Certified Radiologist. This report was verified electronically.
--- NOTE | 2017-08-22 20:17 | RADRPT ---
EXAM DATE/TIME: 08/22/2017 19:52 [facility] COMPARISON: No previous studies available for comparison. INDICATIONS : Right wrist pain, fell MEDICAL HISTORY : Cholecystectomy. Pancreatic surgery. SURGICAL HISTORY : Cholecystectomy. Pancreatic surgery. ENCOUNTER: Initial ACUITY: 1 day PAIN SCORE: 8/10 LOCATION: Right Wrist FINDINGS: Three view examination of the right wrist demonstrates no soft tissue swelling, dislocation, or fract ure. The carpal bones are in normal alignment. The joint spaces are maintained. Bony mineralizatio n is mildly decreased. CONCLUSION: No evidence of recent bony injury. Evans Conn MD on August 22, 2017 at 20:14 Board Certified Radiologist. This report was verified electronically.
--- NOTE | 2017-08-22 20:17 | RADRPT ---
EXAM DATE/TIME: 08/22/2017 19:48 [facility] COMPARISON: No previous studies available for comparison. INDICATIONS : Right hip pain, fell MEDICAL HISTORY : Pancreatitis. Gastroesophageal reflux disease. Hypertension SURGICAL HISTORY : Cholecystectomy. Pancreatic surgery. ENCOUNTER: Initial ACUITY: 1 day PAIN SCORE: 8/10 LOCATION: Right Hip FINDINGS: Diffuse osteopenia. The bony pelvic ring is grossly intact. Symmetric appearance of the proximal fe moral neck. In the intratrochanteric region on the right side, there is serpiginous lucency suggesti ve of a nondisplaced intratrochanteric fracture.. No radiopaque foreign bodies. CONCLUSION: Possible intratrochanteric fracture of the right side, nondisplaced. Evans Conn MD on August 22, 2017 at 20:13 Board Certified Radiologist. This report was verified electronically.
--- NOTE | 2017-08-22 20:25 | RADRPT ---
EXAM DATE/TIME: 08/22/2017 20:02 [facility] COMPARISON: No previous studies available for comparison. INDICATIONS : Trauma, fall. RADIATION DOSE: 36.22 CTDIvol (mGy) MEDICAL HISTORY : Pancreatitis. Hypertension. Gastroesophageal reflux disease. SURGICAL HISTORY : Cholecystectomy. ENCOUNTER: Initial ACUITY: 1 day PAIN SCALE: 4/10 LOCATION: cranial TECHNIQUE: Multiple contiguous axial images were obtained of the head. Using automated exposure control and adj ustment of the mA and/or kV according to patient size, radiation dose was kept as low as reasonably a chievable to obtain optimal diagnostic quality images. DICOM format image data is available electro nically for review and comparison. FINDINGS: The head is mildly canted in the gantry creating asymmetry. CEREBRUM: The ventricles are normal for age. No evidence of midline shift, mass lesion, hemorrhage or acute in farction. No extra-axial fluid collections are seen. POSTERIOR FOSSA: The cerebellum and brainstem are intact. The 4th ventricle is midline. The cerebellopontine angle i s unremarkable. EXTRACRANIAL: The visualized portion of the orbits is intact. 3.3 cm smooth margin oval opacity in the left maxill david sinus suggesting retention cyst or polyp. SKULL: No skull fracture seen. CONCLUSION: No acute findings in the brain Evans Conn MD on August 22, 2017 at 20:15 Board Certified Radiologist. This report was verified electronically.
[2017-08-22 20:59] LABS: AUTOMATED NEUTROPHIL # 2.8 TH/MM3 (1.8-7.7); BASOPHIL % 0.9 % (0.0-2.0); EOSINOPHIL # 0.1 TH/MM3 (0-0.4); EOSINOPHIL % 1.9 % (0.0-4.0); HEMATOCRIT 42.6 % (35.0-46.0); HEMOGLOBIN 14.8 GM/DL (11.6-15.3); LYMPH % 39.8 % (9.0-44.0); LYMPHOCYTE # 2.2 TH/MM3 (1.0-4.8); MEAN CELL VOLUME 88.8 FL (80.0-100.0); MEAN CORPUSCULAR HEMOGLOBIN 30.8 PG (27.0-34.0); MEAN CORPUSCULAR HGB CONC 34.6 % (32.0-36.0); MONO % 8.1 % (0.0-8.0); MONOCYTE # 0.5 TH/MM3 (0-0.9); NEUT % 49.3 % (16.0-70.0); PLATELET COUNT 109 TH/MM3 (150-450); WHITE BLOOD COUNT 5.6 TH/MM3 (4.0-11.0)
[2017-08-22] MEDS ORDERED: MORPHINE SULFATE 2 MG/ML INJ IV PUSH ONE (21:15)
[2017-08-22] MEDS ORDERED: ONDANSETRON HCL 4 MG/2 ML VIAL IV PUSH ONE (21:15)
[2017-08-22 21:17] LABS: INTERNATIONAL NORMALIZED RATIO 1.1 RATIO; PROTHROMBIN TIME - PATIENT 10.8 SEC (9.8-11.6)
[2017-08-22 21:22] LABS: BACTERIA, URINE RARE /hpf; BILIRUBIN, URINE NEG (NEG); BLOOD, URINE NEG (NEG); GLUCOSE,URINE NEG (NEG); KETONE, URINE NEG (NEG); NITRITE,URINE NEG (NEG); SQUAMOUS EPITHELIAL CELL URINE <1 /hpf (0-5); URINE COLOR YELLOW (YELLW/STRAW); URINE LEUKOCYTE ESTERASE MOD (NEG)
[2017-08-22 22:02] LABS: ALBUMIN 3.5 GM/DL (3.4-5.0); ALKALINE PHOSPHATASE 226 U/L (45-117); ALT (GPT) 44 U/L (10-53); AST (GOT) 91 U/L (15-37); BICARBONATE 24.3 MEQ/L (21.0-32.0); BLOOD UREA NITROGEN 8 MG/DL (7-18); CALCIUM 8.3 MG/DL (8.5-10.1); CHLORIDE 95 MEQ/L (98-107); CREATININE 0.58 MG/DL (0.50-1.00); GLOMERULAR FILTRATION RATE 128 ML/MIN (>89); GLUCOSE,RANDOM 87 MG/DL (74-106); MAGNESIUM 1.9 MG/DL (1.5-2.5); SODIUM (NA) 129 MEQ/L (136-145); TOTAL BILIRUBIN ADULT 0.3 MG/DL (0.2-1.0); TOTAL PROTEIN 8.2 GM/DL (6.4-8.2)
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
[2017-08-22] MEDS ORDERED: SODIUM CHLORIDE 0.9% FLUSH 10 ML FLUSH IV FLUSH PRN (22:30)
[2017-08-22] MEDS ORDERED: SENNOSIDES 8.6 MG TAB PO PRN (22:30)
[2017-08-22] MEDS ORDERED: ACETAMINOPHEN 325 MG TAB PO PRN (22:30)
[2017-08-22] MEDS ORDERED: LORazepam 2 MG/ML VIAL IV PUSH PRN ×4 (22:30)
[2017-08-22] MEDS ORDERED: ONDANSETRON HCL 4 MG/2 ML VIAL IVP PRN (22:30)
[2017-08-22] MEDS ORDERED: HALOPERIDOL LACTATE 5 MG/ML AMP IM PRN (22:30)
[2017-08-22] MEDS ORDERED: LIDOCAINE 1%/EPINEPHrine 1:100,000 SOLN 30 ML VIAL INFIL ONE ×2 (22:30→22:45)
[2017-08-22] MEDS ORDERED: FLUMAZENIL 0.5 MG/5 ML VIAL IV PUSH PRN (22:30)
[2017-08-22] MEDS ORDERED: BISACODYL 10 MG SUPP RECTAL PRN (22:30)
[2017-08-22] MEDS ORDERED: LORazepam 2 MG TAB PO PRN (22:30)
[2017-08-22] MEDS ORDERED: LACTULOSE SYRUP 20 GM/30 ML CUP PO PRN (22:30)
[2017-08-22] MEDS ORDERED: LORazepam 1 MG TAB PO PRN (22:30)
--- NOTE | 2017-08-22 22:54 | RADRPT ---
EXAM DATE/TIME: 08/22/2017 22:37 [facility] COMPARISON: No previous studies available for comparison. INDICATIONS : Trauma, fall. Hit head. RADIATION DOSE: 24.36 CTDIvol (mGy) MEDICAL HISTORY : Pancreatitis. Hypertension. Gastroesophageal reflux disease. SURGICAL HISTORY : Cholecystectomy. ENCOUNTER: Initial ACUITY: 1 day PAIN SCALE: 5/10 LOCATION: neck TECHNIQUE: Volumetric scanning of the cervical spine was performed. Multiplanar reconstructions in the sagittal, coronal and oblique axial planes were performed. Using automated exposure control and adjustment o f the mA and/or kV according to patient size, radiation dose was kept as low as reasonably achievable to obtain optimal diagnostic quality images. DICOM format image data is available electronically f or review and comparison. FINDINGS: There is straightening of the cervical lordosis. Vertebral body height is maintained. Mild anterior osteophytes are present at C4-C6 and mild posterior osteophytes are present C4-C7. There is a 7 mm oval lytic lesion in the left body of C6 with internal matrix or sclerotic rib. No evidence of compr ession deformity. Atlantoaxial articulation is intact. The posterior elements are in normal alignme nt without evidence of locked or perched facets. C2-C3: No fracture seen. The neural foramina are patent. C3-C4: No fracture seen. Mild right bony neural foraminal stenosis. C4-C5: No fracture seen. Mild right bony neural foraminal stenosis. C5-C6: No fracture seen. Mild right bony neural foraminal stenosis. C6-C7: No fracture seen. Moderate right bony neural foraminal stenosis. C7-T1: No fracture seen. The neural foramina are patent. CONCLUSION: 1. No evidence of compression deformity or spondylolisthesis. 2. 7 mm lytic lesion in the left C6 body; of uncertain significance. Evans Cnon MD on August 22, 2017 at 22:45 Board Certified Radiologist. This report was verified electronically.
--- NOTE | 2017-08-22 23:02 | RADRPT ---
EXAM DATE/TIME: 08/22/2017 22:42 [facility] COMPARISON: No previous studies available for comparison. INDICATIONS : Trauma, fall. Evaluate right hip fracture. RADIATION DOSE: 15.53 CTDIvol (mGy) MEDICAL HISTORY : Hypertension. Pancreatitis. Gastroesophageal reflux disease. SURGICAL HISTORY : Cholecystectomy. ENCOUNTER: Initial ACUITY: 1 day PAIN SCALE: 8/10 LOCATION: Right pelvis TECHNIQUE: Volumetric scanning of the hip was performed. Using automated exposure control and adjustment of the mA and/or kV according to patient size, radiation dose was kept as low as reasonably achievable to o btain optimal diagnostic quality images. DICOM format image data is available electronically for rev iew and comparison. FINDINGS: The examination demonstrates a mildly comminuted fracture in the intratrochanteric region with a disp lacement or angulation. No fracture in the femoral neck or head stopped the bony acetabulum is intac t. Mild degenerative changes of the hip joint. CONCLUSION: Nondisplaced mildly comminuted hairline fractures the intratrochanteric region. Evans Conn MD on August 22, 2017 at 22:58 Board Certified Radiologist. This report was verified electronically.
[2017-08-22 23:08] VITALS: BP 132/69; PULSE 96; RESP 20; O2SAT 98
[2017-08-23 00:10] VITALS: BP 116/56; PULSE 67; RESP 16; TEMP 97.4; O2SAT 93
[2017-08-23] MEDS ORDERED: CHLORHEXIDINE GLUCONATE 2 % 1 PACK (2 CLOTHS) TOPICAL PRN (01:00)
[2017-08-23] MEDS ORDERED: SODIUM CHLORID 0.9% 500 ML IV PRN (01:00)
[2017-08-23] MEDS ORDERED: LACTATED RINGER'S 1000 ML IV PRN (01:00)
[2017-08-23] MEDS ORDERED: POVIDONE IODINE 5% (ANTISEPSIS KIT) 4 APPLICATIONS EACH NARE PRN (01:00)
[2017-08-23] MEDS: MORPHINE SULFATE 2 MG/ML INJ IV PUSH PRN ×6 (01:02→20:14)
[2017-08-23] MEDS: SODIUM CHLOR 0.9% 1000 ML INJ 1,000 ML IV SCH ×3 (01:03→15:27)
[2017-08-23 04:30] VITALS: BP 115/62; PULSE 84; RESP 16; TEMP 98.1; O2SAT 94
[2017-08-23 06:29] LABS: AUTOMATED NEUTROPHIL # 4.1 TH/MM3 (1.8-7.7); BASOPHIL % 0.4 % (0.0-2.0); EOSINOPHIL # 0.1 TH/MM3 (0-0.4); EOSINOPHIL % 1.3 % (0.0-4.0); HEMATOCRIT 33.7 % (35.0-46.0); HEMOGLOBIN 11.4 GM/DL (11.6-15.3); LYMPH % 33.5 % (9.0-44.0); LYMPHOCYTE # 2.6 TH/MM3 (1.0-4.8); MEAN CELL VOLUME 90.7 FL (80.0-100.0); MEAN CORPUSCULAR HEMOGLOBIN 30.8 PG (27.0-34.0); MEAN PLATELET VOLUME 10.3 FL (7.0-11.0); MONO % 12.1 % (0.0-8.0); MONOCYTE # 0.9 TH/MM3 (0-0.9); NEUT % 52.7 % (16.0-70.0); PLATELET COUNT 87 TH/MM3 (150-450); RED BLOOD COUNT 3.71 MIL/MM3 (4.00-5.30); RED CELL DISTRIBUTION WIDTH 13.2 % (11.6-17.2); WHITE BLOOD COUNT 7.9 TH/MM3 (4.0-11.0)
[2017-08-23 07:03] LABS: ALBUMIN 2.9 GM/DL (3.4-5.0); ALKALINE PHOSPHATASE 172 U/L (45-117); ALT (GPT) 35 U/L (10-53); AST (GOT) 68 U/L (15-37); BICARBONATE 21.6 MEQ/L (21.0-32.0); BLOOD UREA NITROGEN 7 MG/DL (7-18); CALCIUM 7.6 MG/DL (8.5-10.1); CHLORIDE 105 MEQ/L (98-107); CREATININE 0.53 MG/DL (0.50-1.00); GLOMERULAR FILTRATION RATE 142 ML/MIN (>89); GLUCOSE,RANDOM 70 MG/DL (74-106); SODIUM (NA) 137 MEQ/L (136-145); TOTAL BILIRUBIN ADULT 0.4 MG/DL (0.2-1.0); TOTAL PROTEIN 6.6 GM/DL (6.4-8.2)
[2017-08-23] MEDS: FOLIC ACID 1 MG TAB PO SCH (07:34)
[2017-08-23] MEDS: THIAMINE HCL 100 MG TAB PO SCH (07:35)
[2017-08-23] MEDS: DOCUSATE SODIUM 50 MG/SENNA 8.6 MG TAB PO SCH ×2 (07:35→20:13)
[2017-08-23] MEDS: MULTIVITAMINS/MINERALS THERAPEUTIC TAB PO SCH (07:35)
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
[2017-08-23 08:00] VITALS: BP 118/61; PULSE 88; RESP 17; TEMP 98.8; O2SAT 94
[2017-08-23] MEDS ORDERED: SODIUM CHLORIDE 0.9% FLUSH 10 ML FLUSH IV FLUSH SCH (09:00)
--- NOTE | 2017-08-23 10:51 | EKG ---
Date Performed: 08/22/2017 Time Performed: 20:18:41 PTAGE: 62 years EKG: Sinus rhythm POSSIBLE LEFT ATRIAL ENLARGEMENT BORDERLINE ECG NO PREVIOUS TRACING DOCTOR: Gage Elizabeth Interpretating Date/Time 08/23/2017 10:49:23
[2017-08-23 11:27] VITALS: BP 132/62; PULSE 94; RESP 18; TEMP 98.5; O2SAT 95
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
[2017-08-23] MEDS ORDERED: LIDOCAINE HCL 1% PF 5 ML SYRINGE OTHER ONE (12:00)
[2017-08-23] MEDS ORDERED: DEXAMETHASONE SOD PHOS 4 MG/ML VIAL IV ONE (12:00)
[2017-08-23] MEDS ORDERED: NEOSTIGMINE 5 MG/5 ML SYRINGE IV PUSH ONE (12:00)
[2017-08-23] MEDS ORDERED: ePHEDrine/NS 25 MG/5 ML SYRINGE IV ONE (12:00)
[2017-08-23] MEDS ORDERED: GLYCOPYRROLATE 1 MG/5 ML SYRINGE IV PUSH ONE (12:00)
[2017-08-23] MEDS ORDERED: PROPOFOL 200 MG/20 ML AMP IV ONE (12:00)
[2017-08-23] MEDS ORDERED: ONDANSETRON HCL 4 MG/2 ML VIAL IV ONE (12:00)
[2017-08-23] MEDS ORDERED: ROCURONIUM INJ 50 MG/5 ML SYRINGE IV PUSH ONE (12:00)
[2017-08-23] MEDS: DEXT 5%-NACL 0.45% 1000 ML INJ 1,000 ML IV SCH (12:33)
[2017-08-23 15:17] VITALS: BP 127/69; PULSE 100; RESP 18; TEMP 96; O2SAT 92
[2017-08-23] MEDS ORDERED: ceFAZolin 2 GM PREMIX 50 ML ONE (17:04)
[2017-08-23] MEDS ORDERED: GENTAMICIN SULFATE 80 MG/2 ML VIAL ONE (17:04)
--- NOTE | 2017-08-23 18:41 | HHI.PR ---
cc: Juliana Gutierres MD Immediate Post Op Note Procedure Date: Aug 23, 2017 Pre Op Diagnosis: Closed right intertrochanteric fracture Post Op Diagnosis: same Surgeon: Juliana Gutierres Sheriff Detective(s): none Procedure: INtramedullary nail right intertrochanteric femur fracture Complications: none Specimen(s) removed: none Estimated blood loss: 75cc Anesthesia: General Drains: None IVF Patient to: PACU Patient Condition: Good Implant/Devices: SEE IMPLANT LOG (if applicable) Date/Time of Procedure: SEE SURGICAL CARE RECORD Juliana Gutierres MD Aug 23, 2017 18:41
[2017-08-23] MEDS ORDERED: Post-op Orders (for Pharmacy) XX ONE (18:45)
[2017-08-23] MEDS ORDERED: SODIUM CHLORIDE 0.9% FLUSH 10 ML FLUSH IV FLUSH PRN (18:45)
[2017-08-23] MEDS ORDERED: DO NOT ADM ANY ANTICOAGULANT DRUGS PRN (19:30)
--- NOTE | 2017-08-23 20:07 | RADRPT ---
EXAM DATE/TIME: 08/23/2017 18:25 [facility] COMPARISON: No previous studies available for comparison. INDICATIONS : Right hip, troch nail. MEDICAL HISTORY : Hypertension. Pancreatitis. Gastroesophageal reflux disease. SURGICAL HISTORY : Cholecystectomy. ENCOUNTER: Initial ACUITY: 1 day PAIN SCORE: Non-responsive. LOCATION: Right hip. FINDINGS: Postop screw fixation and cristina fixation of the proximal femur with minimal residual displacement of th e fracture. CONCLUSION: 1. Fixation proximal right femur. Reji Ivan MD on August 23, 2017 at 20:04 Board Certified Radiologist. This report was verified electronically.
[2017-08-23 20:23] VITALS: BP 155/88; PULSE 80; RESP 18; TEMP 98.9; O2SAT 98
[2017-08-23] MEDS: SODIUM CHLORIDE 0.9% FLUSH 10 ML FLUSH IV FLUSH SCH (20:23)
[2017-08-24] VITALS (7 sets, daily range): BP systolic 115–168; BP diastolic 59–89; PULSE 79–97; RESP 17–19; TEMP 97.8–99.6; O2SAT 93–98
[2017-08-24] MEDS: ACETAMINOPHEN/HYDROcodone 325 MG/5 MG TAB PO PRN ×5 (01:42→19:55)
[2017-08-24] MEDS: DEXT 5%-NACL 0.45% 1000 ML INJ 1,000 ML IV SCH ×3 (03:30→11:19)
[2017-08-24] MEDS: SODIUM CHLOR 0.9% 1000 ML INJ 1,000 ML IV SCH ×2 (04:16→11:19)
[2017-08-24] MEDS: ENOXAPARIN SODIUM 40 MG/0.4 ML SYRINGE SQ SCH (07:35)
[2017-08-24] MEDS: FOLIC ACID 1 MG TAB PO SCH (07:36)
[2017-08-24] MEDS: DOCUSATE SODIUM 50 MG/SENNA 8.6 MG TAB PO SCH ×2 (07:36→19:54)
[2017-08-24] MEDS: MULTIVITAMINS/MINERALS THERAPEUTIC TAB PO SCH (07:36)
[2017-08-24] MEDS: THIAMINE HCL 100 MG TAB PO SCH (07:36)
[2017-08-24] MEDS: MAGNESIUM HYDROXIDE SUSP 30 ML CUP PO PRN (07:37)
[2017-08-24] MEDS: SODIUM CHLORIDE 0.9% FLUSH 10 ML FLUSH IV FLUSH SCH ×2 (07:47→19:58)
[2017-08-24] MEDS ORDERED: XARE10TA PO (10:04)
[2017-08-24] MEDS ORDERED: HYDR-3516 PO (10:04)
--- NOTE | 2017-08-24 10:24 | PD.ORT.PN ---
Subjective Subjective Remarks Patient resting comfortably. States her right hip pain is improved since surgery. Objective Vitals Vital Signs Date Time Temp Pulse Resp B/P (MAP) Pulse Ox O2 Delivery O2 Flow Rate FiO2 08/24/17 08:32 Nasal Cannula 2.00 08/24/17 08:13 Nasal Cannula 2.00 08/24/17 08:00 97.8 82 17 115/59 (77) 96 08/24/17 05:30 98.4 80 19 129/69 (89) 96 08/24/17 00:15 98.5 79 19 168/89 (115) 97 08/23/17 20:23 98.9 80 18 155/88 (110) 98 08/23/17 20:15 Nasal Cannula 2.00 08/23/17 19:16 97.5 79 20 158/68 (98) 98 Nasal Cannula 2 08/23/17 19:00 83 20 147/77 (100) 98 Nasal Cannula 2 08/23/17 18:50 97.5 87 20 166/75 (105) 98 Nasal Cannula 2 08/23/17 15:29 94 Nasal Cannula 2.00 08/23/17 15:17 96.0 100 18 127/69 (88) 92 08/23/17 11:27 98.5 94 18 132/62 (85) 95 I/O 08/23/17 08/23/17 08/23/17 08/24/17 08/24/17 08/24/17 07:00 15:00 23:00 07:00 15:00 23:00 Intake Total 101 ml 850 ml 240 ml Output Total 1225 ml 700 ml 225 ml 650 ml Balance -1124 ml -700 ml 625 ml -410 ml Intake Oral 0 ml 240 ml 240 ml IV Total 101 ml 210 ml Other 400 ml Output Urine Total 1225 ml 700 ml 150 ml 650 ml Estimated Blood Loss 75 ml # Bowel Movements 0 Result Diagram: 08/23/17 0503 08/23/17 0503 Objective Remarks Awake, alert, no acute distress. Nonlabored respirations Right lower extremity: Dressings in place without any significant drainage. Neurovascularly intact distally. Negative Homans. Assessment & Plan Assessment and Plan 62-year-old female, POD#1 s/p R IMN for intertrochanteric femur fracture 1. Partial weightbearing right lower extremity. 2. Physical therapy for mobilization 3. Lovenox for DVT prophylaxis while inpatient. Plan to switch to xarelto upon discharge for 14 days. 4. Dressing changes to start on postop day 2. 5. DC planning. Juliana Gutierres MD Aug 24, 2017 10:24
--- NOTE | 2017-08-24 11:43 | HHI.PR ---
Subjective Remarks Follow up for fall, right hip fracture. Patient is currently doing well. No acute concerns. Pain well controlled. No BM yet. Objective Vitals Vital Signs Date Time Temp Pulse Resp B/P (MAP) Pulse Ox O2 Delivery O2 Flow Rate FiO2 08/24/17 11:20 97.8 89 17 126/67 (86) 98 08/24/17 08:32 Nasal Cannula 2.00 08/24/17 08:13 Nasal Cannula 2.00 08/24/17 08:00 97.8 82 17 115/59 (77) 96 08/24/17 05:30 98.4 80 19 129/69 (89) 96 08/24/17 00:15 98.5 79 19 168/89 (115) 97 08/23/17 20:23 98.9 80 18 155/88 (110) 98 08/23/17 20:15 Nasal Cannula 2.00 08/23/17 19:16 97.5 79 20 158/68 (98) 98 Nasal Cannula 2 08/23/17 19:00 83 20 147/77 (100) 98 Nasal Cannula 2 08/23/17 18:50 97.5 87 20 166/75 (105) 98 Nasal Cannula 2 08/23/17 15:29 94 Nasal Cannula 2.00 08/23/17 15:17 96.0 100 18 127/69 (88) 92 I/O 08/23/17 08/23/17 08/23/17 08/24/17 08/24/17 08/24/17 07:00 15:00 23:00 07:00 15:00 23:00 Intake Total 101 ml 850 ml 240 ml Output Total 1225 ml 700 ml 225 ml 650 ml Balance -1124 ml -700 ml 625 ml -410 ml Intake Oral 0 ml 240 ml 240 ml IV Total 101 ml 210 ml Other 400 ml Output Urine Total 1225 ml 700 ml 150 ml 650 ml Estimated Blood Loss 75 ml # Bowel Movements 0 Result Diagram: 08/23/17 0503 08/23/17 0503 Imaging Last Impressions Hip X-Ray 08/23/17 0000 Signed Impressions: Service Date/Time: Wednesday, August 23, 2017 18:25 - CONCLUSION: 1. Fixation proximal right femur. Reji Ivan MD Wrist X-Ray 08/22/17 193 Signed Impressions: Service Date/Time: Tuesday, August 22, 2017 19:52 - CONCLUSION: No evidence of recent bony injury. Evans Conn MD Hip and Pelvis X-Ray 08/22/171931 Signed Impressions: Service Date/Time: Tuesday, August 22, 2017 19:48 - CONCLUSION: Possible intratrochanteric fracture of the right side, nondisplaced. Evans Conn MD Head CT [id number]/171931 Signed Impressions: Service Date/Time: Tuesday, August 22, 2017 20:02 - CONCLUSION: No acute findings in the brain Evans Conn MD Chest X-Ray 08/22/171931 Signed Impressions: Service Date/Time: Tuesday, August 22, 2017 19:50 - CONCLUSION: The lungs are clear. Evans Conn MD Lower Extremity CT 08/22/17 0000 Signed Impressions: Service Date/Time: Tuesday, August 22, 2017 22:42 - CONCLUSION: Nondisplaced mildly comminuted hairline fractures the intratrochanteric region. Evans Conn MD Cervical Spine CT 08/22/17 0000 Signed Impressions: Service Date/Time: Tuesday, August 22, 2017 22:37 - CONCLUSION: 1. No evidence of compression deformity or spondylolisthesis. 2. 7 mm lytic lesion in the left C6 body; of uncertain significance. Evans Conn MD Objective Remarks GENERAL: Alert, NAD. SKIN: Warm and dry. HEAD: Normocephalic. EYES: No scleral icterus. No injection or drainage. NECK: Supple, trachea midline. No JVD or lymphadenopathy. CARDIOVASCULAR: Regular rate and rhythm without murmurs, gallops, or rubs. RESPIRATORY: Breath sounds equal bilaterally. No accessory muscle use. GASTROINTESTINAL: Abdomen soft, non-tender, nondistended. MUSCULOSKELETAL: No cyanosis, or edema. s/p IMN right femur. BACK: Nontender without obvious deformity. No CVA tenderness. Procedures 08/23/2017 Intramedullary nail right intertrochanteric femur fracture A/P Problem List: (1) Fall ICD Code: W19.XXXA - Unspecified fall, initial encounter Status: Acute (2) Hip fracture, right ICD Code: S72.001A - Fracture of unspecified part of neck of right femur, initial encounter for closed fracture (3) Alcohol abuse ICD Code: F10.10 - Alcohol abuse, uncomplicated (4) Thrombocytopenia ICD Code: D69.6 - Thrombocytopenia, unspecified (5) Lower extremity edema ICD Code: R60.0 - Localized edema (6) Tobacco abuse ICD Code: Z72.0 - Tobacco use Assessment and Plan 1. Fall: secondary to acute alcohol intoxication, +head trauma, no LOC. + superficial head laceration. CT Head w/ no acute findings 2. Right Hip Fx: s/p Intramedullary nail fixation right femur. Continue [place], Morphine PRN. Currently on Lovenox for DVT prophylaxis. Xarelto on discharge. 3. Alcohol Abuse: w/ Acute Alcohol Intoxication. Daily, heavy drinker. Alcohol 375. High risk for withdrawal. CIWA, Seizure Precautions, MVT/Thiamine /Folate replacement. 4. Thrombocytopenia: secondary to alcohol abuse. No active bleeding noted. Platelets 109, previously 118 on 07/02/17. Plt count 87 today. Full code. Lovenox. Probable discharge in 1-2 days upon Orthopedic surgery clearance. Hong Hutchins DO Aug 24, 2017 11:43
[2017-08-25] MEDS: SODIUM CHLOR 0.9% 1000 ML INJ 1,000 ML IV SCH ×2 (00:16→10:16)
[2017-08-25] MEDS: ACETAMINOPHEN/HYDROcodone 325 MG/5 MG TAB PO PRN ×3 (00:26→08:53)
[2017-08-25 00:35] VITALS: BP 113/61; PULSE 102; RESP 17; TEMP 99.2; O2SAT 92
[2017-08-25 04:20] VITALS: BP 113/63; PULSE 91; RESP 17; TEMP 99.2; O2SAT 92
[2017-08-25] MEDS: DEXT 5%-NACL 0.45% 1000 ML INJ 1,000 ML IV SCH ×2 (05:00→15:00)
[2017-08-25] MEDS: ENOXAPARIN SODIUM 40 MG/0.4 ML SYRINGE SQ SCH (06:42)
[2017-08-25 08:00] VITALS: BP 108/61; PULSE 86; RESP 17; TEMP 99; O2SAT 92
[2017-08-25] MEDS: MULTIVITAMINS/MINERALS THERAPEUTIC TAB PO SCH (08:53)
[2017-08-25] MEDS: THIAMINE HCL 100 MG TAB PO SCH (08:53)
[2017-08-25] MEDS: SODIUM CHLORIDE 0.9% FLUSH 10 ML FLUSH IV FLUSH SCH (08:53)
[2017-08-25] MEDS: FOLIC ACID 1 MG TAB PO SCH (08:53)
[2017-08-25] MEDS: DOCUSATE SODIUM 50 MG/SENNA 8.6 MG TAB PO SCH (08:54)
[2017-08-25] MEDS: MAGNESIUM HYDROXIDE SUSP 30 ML CUP PO PRN (08:54)
[2017-08-25 09:31] VITALS: O2SAT 92
[2017-08-25 12:00] VITALS: BP 115/74; PULSE 105; RESP 17; TEMP 98; O2SAT 91
[2017-08-25] MEDS ORDERED: THIA100 PO (13:50)
[2017-08-25] MEDS ORDERED: FOLI1TAB6 PO (13:50)
[2017-08-25] MEDS: ACETAMINOPHEN/HYDROcodone 325 MG/10 MG TAB PO PRN ×2 (14:19→17:15)
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
== END 2017-08-25 17:05 | DRG 482 ==
LOC: NEPE 19:18 → NEDA 22:03 → N06A 08-23 00:11
PROVIDERS: ADMIT Hospitalist; ATTEND Hospitalist
PROC: 0HQ1XZZ Repair Face Skin, External Approach (ICD-10-PCS; 2017-08-22)
PROC: 0QS606Z Reposition Right Upper Femur with Intramedullary Internal Fixation Device, Open Approach (ICD-10-PCS; principal; 2017-08-23 17:33)
DX: S72.144A Nondisplaced intertrochanteric fracture of right femur, initial encounter for closed fracture (principal); S01.91XA Laceration without foreign body of unspecified part of head, initial encounter; W01.0XXA Fall on same level from slipping, tripping and stumbling without subsequent striking against object, initial encounter; D69.59 Other secondary thrombocytopenia; F10.129 Alcohol abuse with intoxication, unspecified; Y90.8 Blood alcohol level of 240 mg/100 ml or more; I10 Essential (primary) hypertension; M10.9 Gout, unspecified; B19.20 Unspecified viral hepatitis C without hepatic coma; F17.210 Nicotine dependence, cigarettes, uncomplicated; R60.0 Localized edema
CPT/HCPCS: 12011; 70450; 71045; 72125; 73110; 73502; 73700; 76000; 80053; 80307; 81001; 82948; 83690; 83735; 85025; 85610; 85730; 86850; 86900; 86901; 90471; 90715; 93005; 94150; 96365; C1713; J0690; J1100; J1580; J1650; J2270; J2405; J2710; J3010; J3411; J7030; L0150